=== PATIENT | female | born 1980 | race Caucasian/White ===

== ENCOUNTER 2024-08-26 05:01 | Inpatient (IN) | payer OTHER ==
[2024-08-26 05:37] VITALS: BMI 26.5
[2024-08-26] MEDS ORDERED: NALOXONE (NARCAN) HCL 4 MG/0.1 ML SPRAY NS PRN (06:22)
[2024-08-26] MEDS ORDERED: MAGNESIUM HYDROX 2400MG/30ML ORAL SUSPENSION 30 ML CUP PO PRN (06:22)
[2024-08-26] MEDS ORDERED: IBUPROFEN 400 MG TABLET (FP) PO PRN (06:22)
[2024-08-26] MEDS ORDERED: POLYETHYLENE GLYCOL (HEALTHYLAX) 3350 17 GM PACKET PO PRN (06:22)
[2024-08-26] MEDS ORDERED: MAG HYDROX/AL HYDROX/SIMETH 30 ML UNIT-DOSE CUP PO PRN (06:22)
[2024-08-26] MEDS ORDERED: BENZOCAINE/MENTHOL (CHLORASEPTIC ) LOZENGE MM PRN (06:22)
[2024-08-26] MEDS ORDERED: BISMUTH SUBSALICYLATE 524 MG/30 ML PO PRN (06:22)
[2024-08-26] MEDS ORDERED: DICYCLOMINE HCL 10 MG CAPSULE PO PRN (06:22)
[2024-08-26] MEDS ORDERED: guaiFENesin 600 MG TABLET.ER (FP) PO PRN (06:22)
[2024-08-26] MEDS ORDERED: LOPERAMIDE HCL 2 MG CAPSULE PO PRN (06:22)
[2024-08-26] MEDS ORDERED: BENZONATATE 200 MG CAPSULE PO PRN (06:22)
[2024-08-26] MEDS: PRENATAL VITAMINS W/ FOLIC ACID TABLET (FP) PO SCH (10:04)
[2024-08-26] MEDS: NICOTINE POLACRILEX 2 MG GUM BUC PRN (10:04)
[2024-08-26] MEDS: NICOTINE 14 MG/24 HOURS TOPICAL PATCH TD SCH (10:05)
[2024-08-26] MEDS: METHOCARBAMOL 500 MG TABLET PO PRN (16:05)
[2024-08-26] MEDS: IBUPROFEN 600 MG TABLET (FP) PO PRN (17:26)
[2024-08-26] MEDS: THIAMINE 100 MG TABLET PO SCH (21:43)
[2024-08-26] MEDS: MIRTAZAPINE 15 MG TABLET (FP) PO SCH (21:44)
[2024-08-26] MEDS ORDERED: MELATONIN 5 MG TABLETS PO SCH (22:00)
[2024-08-27] MEDS: ONDANSETRON *ODT* 4 MG TABLET SL PRN (01:43)
[2024-08-27] MEDS: ACETAMINOPHEN 325 MG TABLET (FP) PO PRN (03:08)
[2024-08-27 06:03] VITALS: BP 147/78; PULSE 60; RESP 16; TEMP 97.7
[2024-08-27] MEDS ORDERED: SERTRALINE HCL 50 MG TABLET (FP) PO SCH (10:00)
== END 2024-08-27 06:55 | disposition left against medical advice (07) | DRG 770 ==
LOC: YASAS 05:01 → Y3N 06:44
PROVIDERS: ADMIT Allergy & Immunology; ATTEND Allergy & Immunology
PROC: HZ2ZZZZ Detoxification Services for Substance Abuse Treatment (ICD-10-PCS; principal; 2024-08-26)
DX: F10.230 Alcohol dependence with withdrawal, uncomplicated (principal); F13.20 Sedative, hypnotic or anxiolytic dependence, uncomplicated; F11.20 Opioid dependence, uncomplicated; F17.210 Nicotine dependence, cigarettes, uncomplicated; F19.24 Other psychoactive substance dependence with psychoactive substance-induced mood disorder; G47.00 Insomnia, unspecified; Z62.810 Personal history of physical and sexual abuse in childhood; Z91.410 Personal history of adult physical and sexual abuse; Z63.8 Other specified problems related to primary support group; Z63.0 Problems in relationship with spouse or partner; Z86.59 Personal history of other mental and behavioral disorders
CPT/HCPCS: 80305; 80307; 81025; 93005; 93010; Q0162